=== PATIENT | male | born 1965 | race Hispanic/Latino ===

== ENCOUNTER 2018-06-30 12:33 | Outpatient (CLI) | payer BC ==
--- NOTE | 2018-06-30 14:39 | RAD ---
CHEST TWO VIEWS: HISTORY: Preoperative radiograph. COMPARISON: 06/11/2015 FINDINGS: Two views of the chest show normal sized cardiomediastinal silhouette. There is no evidence of consol idation, mass, or pleural effusion. The bones are unremarkable. IMPRESSION: No evidence of acute cardiopulmonary disease. POS: [facility]
[2018-06-30 15:22] LABS: Bilirubin Negative (Negative); Blood, Urine Negative (Negative); Clarity CLEAR (Clear); Glucose, Urine (Dipstick) Negative (Negative); Leukocyte Negative (Negative); Nitrite Negative (Negative); Protein, Urine (Dipstick) Negative (Neg-Trace); Specific Gravity, Urine 1.025 (1.002-1.036); pH, Urine 6.5 (5.0-9.0)
[2018-06-30 15:33] LABS: Bacteria/HPF None Seen HPF (None Seen); Hyaline Casts/LPF 0-3 HYALINE CAST LPF (0-3 Hyaline); Squamous Epithelial None Seen HPF (0-3); WBC/HPF 0-3 HPF (0-3)
--- NOTE | 2018-06-30 15:48 | EKG ---
Test Reason : Blood Pressure : / mmHG Vent. Rate : 059 BPM Atrial Rate : 059 BPM P-R Int : 158 ms QRS Dur : 130 ms QT Int : 428 ms P-R-T Axes : 024 261 -11 degrees QTc Int : 423 ms Sinus bradycardia Right bundle branch block Inferior infarct (cited on or before 27-MAR-2014) Abnormal ECG Confirmed by ZARA SWARTZ ([id number]) on 06/30/2018 3:47:26 PM Referred By: LANDY Confirmed By:ZARA SWARTZ
== END 2018-06-30 12:34 | disposition home or self-care (01) ==
LOC: LABBT 12:33
PROVIDERS: ATTEND Orthopaedic Surgery
DX: Z01.818 Encounter for other preprocedural examination (principal)
CPT/HCPCS: 71046; 81001; 87081; 93005; 93010

== ENCOUNTER 2018-06-30 13:00 | Inpatient (IN) | payer BC ==
[2018-07-12] MEDS ORDERED: CEFAZOLIN 2 GM/50 ML BAG ONE (07:33)
[2018-07-12] MEDS ORDERED: Fentanyl 100 MCG/2 ML VIAL ONE ×3 (07:57→11:22)
[2018-07-12] MEDS ORDERED: Midazolam HCl 2 mg/2 ml Vial ONE (07:57)
[2018-07-12] MEDS ORDERED: Zolpidem Tartrate 5 MG TAB PO PRN ×2 (08:27→08:54)
[2018-07-12] MEDS ORDERED: Promethazine HCl 25 MG/ML VIAL IM PRN ×3 (08:27→10:00)
[2018-07-12] MEDS ORDERED: HYDROcodone/Acetaminophen 10/325 mg Tablet PO PRN ×2 (08:27)
[2018-07-12] MEDS ORDERED: traMADol HCl 50 MG TAB PO PRN ×2 (08:27)
[2018-07-12] MEDS ORDERED: Ondansetron PF 4 MG/2 ML Vial IVP PRN ×2 (08:27→08:54)
[2018-07-12] MEDS ORDERED: Ropivacaine HCl/PF 250 ML in Premix Bag 1 BAG NERVE BLCK SCH (08:27)
[2018-07-12] MEDS ORDERED: Fentanyl 100 MCG/2 ML VIAL IV PRN (08:28)
[2018-07-12] MEDS ORDERED: diphenhydrAMINE 25 MG CAP PO PRN (08:54)
[2018-07-12] MEDS ORDERED: Acetaminophen 325 MG TAB PO PRN (08:54)
[2018-07-12] MEDS ORDERED: Nitroglycerin 4.9 GM Bottle SL PRN (08:55)
[2018-07-12] MEDS ORDERED: Ondansetron HCl/PF 4 MG/2 ML Vial IVP PRN (10:00)
[2018-07-12] MEDS ORDERED: Promethazine HCl 25 MG/ML VIAL SLOW IVP PRN (10:00)
--- NOTE | 2018-07-12 10:55 | OP ---
DATE OF PROCEDURE: 07/12/2018 TITLE OF PROCEDURE: Right total knee arthroplasty using Folcroft Triathlon 5 femur, 6 tibia, 9 mm CSX 3 polyethylene and A32 patella. SURGEON: Carlos Patterson M.D. PIPE JEEPER: Rolo Bucio PA-C. BLOOD LOSS: Minimal. SPECIMEN: None. DRAINS: None. COMPLICATIONS: None. TOURNIQUET TIME: 54 minutes. PROCEDURE IN DETAIL: After informed consent was obtained in the preoperative holding area. The dorian ent was taken to the operative suite where general anesthesia was induced. Once adequate level of ge neral anesthesia was obtained, the patient was positioned and a well-padded tourniquet was placed becky und the right proximal thigh. The right lower extremity was then prepped and draped in the usual sridevi rile fashion. Prior to exsanguination, a time out was called and all members of the surgical team ag magdy upon site, surgeon, and patient. The extremity was then exsanguinated and the tourniquet was ra ised. A midline longitudinal incision was then made directly over the patella extending two fingerbr eadths above the superior pole of the patella and two fingerbreadths inferior to the inferior patella r pole of the patella. Deeper subcutaneous layers were dissected sharply and local bleeding was cont rolled with Bovie electrocautery. A quad tendon longitudinal split was then made sharply and a media n parapatellar arthrotomy was carried out both sharp and with Bovie electrocautery, carried down to o ne fingerbreadth medial to the tibial tubercle. The knee was then placed into flexion and the patell a was everted nicely, and a copious fat pad ectomy was performed allowing for greater exposure of the tibia. The computer-assisted distal femoral fiducial was then placed and pinned firmly, and the dis anthony femoral cutting guide was pinned firmly into place. The oscillating saw was then used to remove the appropriate amount of bone. The 4-in-1 cutting block was then placed on the distal femur and the oscillating saw was used to remove the appropriate amount of bone off of the anterior, posterior, an d chamfer cuts. After completion of bone cuts, the anterior cruciate ligament was resected sharply a nd the posterior cruciate ligament retractor was placed and the tibia was subluxed for better exposur e. Partial meniscectomies were carried out, and the tibial computer-assisted fiducial was pinned, an d the cutting guide was placed. Oscillating saw was then used to remove the bone with Hohmann retrac tors used to take care and protect the collateral ligaments. After the tibial resection was performe d, a laminar heavy equipment engine mechanic was placed in between the freshened bone cuts. The knee placed at 90 degrees a nd further bilateral meniscectomies were carried out, and the curved osteotome and curettage was used to remove any excess bone spurs in the posterior compartment. The trial femoral component, tibial b aseplate were placed with the appropriate polyethylene trial insert with an appropriate polyethylene spacer and patellar button. The knee was taken through full range of motion with flexion and extensi on from 0-90 degrees and patellar broach squarely in the trochlea without any squinting or subluxatio n noted. The knee was also stable to varus and valgus stressing at 0, 15, 45, and 90 degrees of flex ion. The drawer was negative. All trial components were then removed and the keel punch was used to provide the appropriate defect in the tibia with a mallet. The freshened bone cuts were copiously ir rigated with pulsatile lavage of about 1-1/2 liters to remove all excess debris. The freshened bone cuts were then dried and with suction and lap sponge. The knee was placed in flexion and retractors were placed to provide access to all bone cuts. Tobramycin impregnated methyl methacrylate cement wa s then placed on the freshened bone cuts and implants which were malleted firmly into place. Curetta ge and [place] elevators were used to remove any excess bone cement. The knee was placed into full ext ension and the patellar button was placed under compression, and the cement was allowed to cure. Onc e completed, the components were again taken through full range of motion and copious irrigation of t he knee was carried out with another liter of normal saline. All components were inspected fully wit h full range of motion and varus and valgus stressing. There was no laxity noted and full extension w as observed clinically. Primary closure was accomplished with #2 interrupted Vicryl stitch of the ar throtomy defect. This was oversewn with a #2 running Quill barbed stitch. The gravitational platele t system was then injected into the arthrotomy prior to closure. The subcutaneous layer was then bobby sed with a running 0 barbed Monocryl stitch and skin closure accomplished with a running subcuticular 3-0 Monocryl barbed Quill stitch and augmented with cement on the skin. Tourniquet was lowered. Go od spontaneous return of distal pulses was noted clinically and a sterile dressing was applied to the incision. The procedure was terminated without any complications. The patient was awakened in the operative suite and the tourniquet was removed, and the patient was taken to the recovery room in sta ble condition.
[2018-07-12] MEDS ORDERED: Promethazine HCl 25 MG/ML VIAL ONE (11:22)
--- NOTE | 2018-07-12 12:01 | RAD ---
RIGHT KNEE 2 VIEWS: HISTORY: Total knee arthroplasty, postop. FINDINGS/IMPRESSION: There are recent postop changes of total knee arthroplasty in good position and alignment. Soft tiss ue air is present. POS: [facility]
[2018-07-12] MEDS: Ferrous Gluconate 324 MG TAB PO SCH ×2 (12:31→20:44)
[2018-07-12] MEDS: Aspirin 81 mg Enteric Coated Tablet PO SCH ×2 (12:31→20:44)
[2018-07-12] MEDS: Atorvastatin Calcium 40 MG TAB PO SCH (12:31)
[2018-07-12] MEDS: Dextrose 5 %-0.45 % NaCl 1,000 ML IV SCH ×2 (12:31→17:53)
[2018-07-12] MEDS: Carvedilol 3.125 MG TAB PO SCH ×2 (12:31→20:43)
[2018-07-12] MEDS: Multivitamin W/ Minerals 1 TAB PO SCH (12:32)
[2018-07-12] MEDS: Senokot S 8.6-50 MG TAB PO SCH ×2 (12:32→20:44)
[2018-07-12] MEDS: Losartan 25 MG TAB PO SCH (12:32)
[2018-07-12] MEDS: Ketorolac Tromethamine 30 MG/ML VIAL IVP SCH ×3 (12:33→23:35)
[2018-07-12 12:34] VITALS: BMI 38.3
--- NOTE | 2018-07-12 14:13 | CON ---
DATE OF CONSULTATION: 07/12/2018 HISTORY OF PRESENT ILLNESS: This is a 53-year-old Latin-Irish male, who was admitted for a total right knee replacement by Dr. Patterson. The patient underwent the surgery this morning and has done we ll. He is now beginning his postoperative care. PAST MEDICAL HISTORY: Coronary artery disease, status post NV in 03/2014, followed by Dr. Carroll; ar thritis; sleep apnea; hypertension; obesity. PAST SURGICAL HISTORY: Past surgeries include Lap-Band in 2007, knee arthroscopy at 20 years of age. Cardiac catheterization with stent placement x2 in 2006 and x2 in 2013. Ankle surgery, left, 2010. Removal of Lap-Band and port with sleeve gastrectomy by Dr. Frias, and he has had a left total knee replacement in 03/2016. FAMILY HISTORY: Positive for ovarian cancer and lymphoma. SOCIAL HISTORY: He is a nonsmoker, he has a prior history, he quit in 1999. He drinks occasional al cohol. 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 He is with 4 kids and 6 g randkids. MEDICATIONS: Include Lipitor 40 every day, losartan 100 mg daily, nitroglycerin p.r.n., aspirin 325 daily, Lasix 20 mg daily, Plavix 75 daily. ALLERGIES: None. REVIEW OF SYSTEMS: As above. PHYSICAL EXAMINATION: VITAL SIGNS: Temperature 97.8, pulse 62, respirations 16, pulse ox 97, blood pressure 141/82. GENERAL: In no acute distress. HEENT: Clear. HEART: Regular rate and rhythm. LUNGS: Clear. ABDOMEN: Soft and nontender. EXTREMITIES: With no edema. ASSESSMENT: 1. Postoperative day #0, status post total right knee replacement this morning by Dr. Patterson. 2. Coronary artery disease. 3. Hypertension. 4. Hyperlipidemia. 5. Sleep apnea. PLAN: 1. Routine postoperative care. 2. Resume home medications. 3. We will continue to follow.
[2018-07-12] MEDS: CEFAZOLIN 2 GM/50 ML BAG IVPB SCH ×2 (14:36→23:35)
[2018-07-12] MEDS ORDERED: Ropivacaine 0.5% HCl/PF (150 MG/30 ML VIAL) ONE (15:29)
[2018-07-12] MEDS ORDERED: Bupivacaine 0.25% HCL 30 ML VIAL ONE (15:29)
[2018-07-12] MEDS: HYDROcodone/Acetaminophen 10/325 mg Tablet PO PRN ×2 (16:12→20:44)
[2018-07-12] MEDS ORDERED: Ketorolac Tromethamine 30 MG/ML VIAL ONE (16:28)
[2018-07-12] MEDS ORDERED: PROPOFOL 200 MG/20 ML VIAL ONE (16:28)
[2018-07-12] MEDS ORDERED: Ondansetron PF 4 MG/2 ML Vial ONE (16:28)
[2018-07-12] MEDS ORDERED: Lidocaine 1% PF 5 ML VIAL ONE (16:28)
[2018-07-13] MEDS: HYDROcodone/Acetaminophen 10/325 mg Tablet PO PRN ×5 (02:01→20:18)
[2018-07-13 05:18] LABS: Hemoglobin 12.3 g/dL (14.0-18.0); Mean Corpuscular HGB CONC 33.2 g/dL (32.0-36.0); Mean Corpuscular Hemoglobin 31.8 pg (27.0-31.0); Mean Corpuscular Volume 95.9 fL (78.0-98.0); Mean Platelet Volume 8.3 fL (7.4-10.4); Platelet Count 178 thou/uL (130-400); RBC Distribution Width 11.5 % (11.5-14.5); Red Blood Cell (RBC) Count 3.87 mill/uL (4.70-6.10); White Blood Cell (WBC) Count 11.3 thou/uL (4.8-10.8)
[2018-07-13] MEDS: Ketorolac Tromethamine 30 MG/ML VIAL IVP SCH ×3 (05:42→17:39)
[2018-07-13] MEDS: Dextrose 5 %-0.45 % NaCl 1,000 ML IV SCH (05:43)
[2018-07-13] MEDS: Aspirin 81 mg Enteric Coated Tablet PO SCH ×2 (08:42→20:18)
[2018-07-13] MEDS: Carvedilol 3.125 MG TAB PO SCH ×2 (08:42→20:18)
[2018-07-13] MEDS: Losartan 25 MG TAB PO SCH (08:42)
[2018-07-13] MEDS: Multivitamin W/ Minerals 1 TAB PO SCH (08:43)
[2018-07-13] MEDS: Atorvastatin Calcium 40 MG TAB PO SCH (08:43)
[2018-07-13] MEDS: Ferrous Gluconate 324 MG TAB PO SCH ×2 (08:43→20:18)
[2018-07-13] MEDS: Senokot S 8.6-50 MG TAB PO SCH ×2 (08:43→20:18)
[2018-07-13] MEDS: traMADol HCl 50 MG TAB PO PRN (08:46)
--- NOTE | 2018-07-13 09:20 | PRG ---
DATE OF SERVICE: 07/13/2018 SUBJECTIVE: The patient is doing well this morning. He is postop day #1. He did ambulate yesterday . If all goes well today, he hopes to go home today. OBJECTIVE: VITAL SIGNS: Temperature 98.9, pulse 81, respirations 18, pulse ox 92, blood pressure 112/68. HEART: Regular rate and rhythm. LUNGS: Clear. ABDOMEN: Soft. LABORATORY DATA: H and H 12 and 37. ASSESSMENT: 1. Postoperative day #1, status post right total knee replacement. 2. Hypertension. 3. Coronary artery disease. 4. Hyperlipidemia. 5. Sleep apnea. PLAN: 1. Routine postoperative care. Routine PT today. 2. Considering going home today or tomorrow. 3. We will continue to follow.
[2018-07-14] MEDS: HYDROcodone/Acetaminophen 10/325 mg Tablet PO PRN ×3 (00:24→10:48)
[2018-07-14] MEDS: Ketorolac Tromethamine 30 MG/ML VIAL IVP SCH ×2 (00:24→05:41)
[2018-07-14 05:38] LABS: Hemoglobin 10.9 g/dL (14.0-18.0); Mean Corpuscular HGB CONC 33.5 g/dL (32.0-36.0); Mean Corpuscular Hemoglobin 32.3 pg (27.0-31.0); Mean Corpuscular Volume 96.5 fL (78.0-98.0); Mean Platelet Volume 8.4 fL (7.4-10.4); Platelet Count 155 thou/uL (130-400); RBC Distribution Width 11.7 % (11.5-14.5); Red Blood Cell (RBC) Count 3.37 mill/uL (4.70-6.10); White Blood Cell (WBC) Count 10.8 thou/uL (4.8-10.8)
--- NOTE | 2018-07-14 08:17 | PRG ---
DATE OF SERVICE: 07/14/2018 SUBJECTIVE: The patient is doing well. No complaints. Tolerated physical therapy well yesterday. OBJECTIVE: VITAL SIGNS: Temperature 98.7, pulse 70, respirations 18, pulse ox 96, blood pressure 121/79. HEART AND LUNGS: Clear. ABDOMEN: Soft. EXTREMITIES: No edema. ASSESSMENT: 1. Postop day #2 status post total right knee replacement. 2. Hypertension. 3. Coronary artery disease. 4. Hyperlipidemia. 5. Sleep apnea. PLAN: Doing well. Most likely discharge home today. Follow up in 2 weeks in my office. Continue a ll medications.
[2018-07-14] MEDS: traMADol HCl 50 MG TAB PO PRN (08:36)
[2018-07-14] MEDS: Ferrous Gluconate 324 MG TAB PO SCH (08:38)
[2018-07-14] MEDS: Losartan 25 MG TAB PO SCH (08:38)
[2018-07-14] MEDS: Senokot S 8.6-50 MG TAB PO SCH (08:38)
[2018-07-14] MEDS: Aspirin 81 mg Enteric Coated Tablet PO SCH (08:39)
[2018-07-14] MEDS: Atorvastatin Calcium 40 MG TAB PO SCH (08:39)
[2018-07-14] MEDS: Multivitamin W/ Minerals 1 TAB PO SCH (08:39)
[2018-07-14] MEDS: Carvedilol 3.125 MG TAB PO SCH (08:39)
[2018-07-14 11:47] VITALS: BP 136/64; TEMP 98.5
--- NOTE | 2018-07-15 13:07 | DIS ---
DATE OF ADMISSION: 07/12/2018 DATE OF DISCHARGE: 07/14/2018 PREOPERATIVE DIAGNOSIS: Right knee osteoarthritis/degenerative joint disease. POSTOPERATIVE DIAGNOSIS: Right knee osteoarthritis/degenerative joint disease. PROCEDURE: The patient underwent a right total knee replacement. HOSPITAL COURSE: Hospital stay was unremarkable. He worked with physical therapy, substance abuse therapist apy, and our Hospitalist Service and had no postop complications. By postop day 2, he was ready to b e discharged home. DISCHARGE CONDITION: Good/stable. DISPOSITION: Home with family. FOLLOWUP: Followup would be in 2-4 weeks, sooner if there are problems or concerns. DISCHARGE MEDICATIONS: Given with usage instructions. Rolo Bucio PA-C for Carlos Patterson MD.
== END 2018-07-14 12:47 | disposition home or self-care (01) | DRG 470 ==
LOC: SURG A 07-12 06:22 → SURG B 07-12 12:19
PROVIDERS: ADMIT Orthopaedic Surgery; ATTEND Orthopaedic Surgery
PROC: 0SRC0J9 Replacement of Right Knee Joint with Synthetic Substitute, Cemented, Open Approach (ICD-10-PCS; principal; 2018-07-12)
DX: M17.11 Unilateral primary osteoarthritis, right knee (principal); Z68.41 Body mass index [BMI] 40.0-44.9, adult; I25.10 Atherosclerotic heart disease of native coronary artery without angina pectoris; I25.2 Old myocardial infarction; E66.9 Obesity, unspecified; Z98.84 Bariatric surgery status; I10 Essential (primary) hypertension; E78.5 Hyperlipidemia, unspecified; Z79.899 Other long term (current) drug therapy; Z79.82 Long term (current) use of aspirin; G47.30 Sleep apnea, unspecified; M54.9 Dorsalgia, unspecified; Z95.5 Presence of coronary angioplasty implant and graft; Z96.652 Presence of left artificial knee joint; Z87.891 Personal history of nicotine dependence
CPT/HCPCS: 36415; 85027; 90471; 90686; C1713; C1776; G0008; G8978-GP-CK; G8979-GP-CI; J1885; J2001; J2250; J2405; J2550; J2704; J2795; J3010; J3370; J7050; S0020

== ENCOUNTER 2018-07-07 08:09 | Outpatient (CLI) | payer BC ==
[2018-07-07 09:16] LABS: PTT 29.2 SEC (22.9-36.1)
[2018-07-07 09:19] LABS: #Basophils 0.1 thou/uL (0.0-0.2); #Eosinphils 0.2 thou/uL (0.0-0.7); #Lymphocytes 1.7 thou/uL (1.20-3.40); #Monocytes 0.8 thou/uL (0.11-0.59); #Neutrophils 5.7 thou/uL (1.40-6.50); %Eosinophils 2.1 % (0.0-10.0); %Lymphocytes 19.9 % (21.0-51.0); Hemoglobin 15.5 g/dL (14.0-18.0); Mean Corpuscular Hemoglobin 31.3 pg (27.0-31.0); Mean Corpuscular Volume 94.8 fL (78.0-98.0); Mean Platelet Volume 8.7 fL (7.4-10.4); Platelet Count 202 thou/uL (130-400); Prothrombin Time 13.2 SEC (12.0-14.7); RBC Distribution Width 11.5 % (11.5-14.5); Red Blood Cell (RBC) Count 4.95 mill/uL (4.70-6.10); White Blood Cell (WBC) Count 8.4 thou/uL (4.8-10.8)
[2018-07-07 09:29] LABS: Anion Gap 11 mmol/L (10-20); BUN (Urea Nitrogen) 15 mg/dL (8.4-25.7); Calc. Creatinine Clearance 0 mL/min (70-130); Calcium 9.4 mg/dL (7.8-10.44); Carbon Dioxide 27 mmol/L (22-29); Chloride 105 mmol/L (98-107); Estimated GFR-MDRD Greater than 90; Glucose 103 mg/dL (70-105); Potassium 4.3 mmol/L (3.5-5.1); Sodium 139 mmol/L (136-145)
== END 2018-07-07 08:10 | disposition home or self-care (01) ==
LOC: LABBT 08:09
PROVIDERS: ATTEND Orthopaedic Surgery
DX: Z01.812 Encounter for preprocedural laboratory examination (principal); M17.11 Unilateral primary osteoarthritis, right knee
CPT/HCPCS: 80048; 85025; 85610; 85730; 86850; 86900; 86901

== ENCOUNTER 2018-11-22 08:26 | Outpatient (CLI) | payer BC ==
--- NOTE | 2018-11-22 09:34 | RAD ---
3 VIEWS LEFT HAND: Date: 11/22/18 HISTORY: Third carpal stiffness and popping. Arthralgias. FINDINGS: Three views of the left hand show no evidence of acute fracture or dislocation. Mild diffuse soft tis aidan swelling is seen. No significant degenerative changes are seen. IMPRESSION: No evidence of acute osseous abnormality. POS: [facility]
== END 2018-11-22 08:27 | disposition home or self-care (01) ==
LOC: BICRAD 08:26
PROVIDERS: ATTEND Family Medicine
DX: M25.542 Pain in joints of left hand (principal); Z00.00 Encounter for general adult medical examination without abnormal findings; M25.50 Pain in unspecified joint
CPT/HCPCS: 36415; 80053; 80061; 81001; 83520; 84443; 84550; 85025; 86038; 86200; 86225; G0103

== ENCOUNTER 2019-05-11 09:47 | Outpatient (CLI) | payer BC ==
--- NOTE | 2019-05-11 10:08 | RAD ---
XR Lumbar Spine 2 Or 3 View HISTORY: Low back pain going into both legs. COMPARISON: None. FINDINGS: The vertebral bodies are normal in height. Degenerative osteophytes are seen along the cour se of this fine with minimal disc narrowing at L4-5 and very minimal spondylolisthesis at this level not definitely changing between the flexion and extension views. There are moderate degenerativ e facet changes present. IMPRESSION: Arthritic changes of the spine.
== END 2019-05-11 09:48 | disposition home or self-care (01) ==
LOC: TBSIIMAG 09:47
PROVIDERS: ATTEND Neurological Surgery
DX: M48.062 Spinal stenosis, lumbar region with neurogenic claudication (principal); M46.96 Unspecified inflammatory spondylopathy, lumbar region
CPT/HCPCS: 72100

== ENCOUNTER 2019-07-11 15:05 | Outpatient (CLI) | payer BC ==
[2019-07-11 16:14] LABS: #Basophils 0.1 thou/uL (0.0-0.2); #Eosinphils 0.3 thou/uL (0.0-0.7); #Lymphocytes 2.1 thou/uL (1.20-3.40); #Monocytes 0.9 thou/uL (0.11-0.59); #Neutrophils 5.4 thou/uL (1.40-6.50); %Basophils 0.7 % (0.0-1.0); %Lymphocytes 23.8 % (21.0-51.0); %Monocytes 10.3 % (0.0-10.0); %Neutrophils 62.2 % (42.0-75.0); Hemoglobin 15.2 g/dL (14.0-18.0); INR-International Normal Ratio 1.1; Mean Corpuscular HGB CONC 34.5 g/dL (32.0-36.0); Mean Corpuscular Hemoglobin 32.9 pg (27.0-31.0); Mean Corpuscular Volume 95.3 fL (78.0-98.0); Mean Platelet Volume 7.9 fL (7.4-10.4); PTT 28.2 SEC (22.9-36.1); Platelet Count 169 thou/uL (130-400); Prothrombin Time 13.7 SEC (12.0-14.7); RBC Distribution Width 12.1 % (11.5-14.5); Red Blood Cell (RBC) Count 4.62 mill/uL (4.70-6.10); White Blood Cell (WBC) Count 8.7 thou/uL (4.8-10.8)
[2019-07-11 16:29] LABS: ALT (SGPT) 32 U/L (8-55); AST (SGOT) 23 U/L (5-34); Alkaline Phosphatase 79 U/L (40-110); Anion Gap 12 mmol/L (10-20); BUN (Urea Nitrogen) 14 mg/dL (8.4-25.7); Bilirubin, Total 0.5 mg/dL (0.2-1.2); Calc. Creatinine Clearance 0 mL/min (70-130); Carbon Dioxide 24 mmol/L (22-29); Chloride 105 mmol/L (98-107); Estimated GFR-MDRD Greater than 90; Globulin 2.7 g/dL (2.4-3.5); Glucose 93 mg/dL (70-105); Potassium 3.9 mmol/L (3.5-5.1); Protein, Total 6.7 g/dL (6.0-8.3); Sodium 137 mmol/L (136-145)
== END 2019-07-11 15:06 | disposition home or self-care (01) ==
LOC: LABBT 15:05
PROVIDERS: ATTEND Internal Medicine Cardiovascular Disease
DX: Z01.812 Encounter for preprocedural laboratory examination (principal); I25.10 Atherosclerotic heart disease of native coronary artery without angina pectoris
CPT/HCPCS: 80053; 85025; 85610; 85730

== ENCOUNTER 2019-07-14 06:12 | Observation (INO) | payer BC ==
[2019-07-11 15:34] VITALS: BMI 43.3
[2019-07-14] MEDS ORDERED: Diazepam 5 MG TAB ONE (06:18)
[2019-07-14] MEDS ORDERED: Heparin (Artline) 1,000 ML ONE (06:37)
[2019-07-14] MEDS ORDERED: Lidocaine 1% (PF) 30 ML VIAL ONE (06:37)
[2019-07-14] MEDS ORDERED: Midazolam HCl 2 mg/2 ml Vial ONE (08:09)
[2019-07-14] MEDS ORDERED: Fentanyl 100 MCG/2 ML VIAL ONE ×5 (08:09→15:00)
[2019-07-14] MEDS ORDERED: Nitroglycerin 100MG/250ML BOT 250 ML ONE (08:42)
[2019-07-14] MEDS ORDERED: Heparin 10,000 UNITS/1 ML VIAL ONE ×2 (08:57→10:34)
[2019-07-14] MEDS ORDERED: Heparin (Artline) 500 ML ONE ×2 (08:58→09:16)
[2019-07-14] MEDS ORDERED: Clopidogrel Bisulfate 300 MG TAB ONE (08:58)
[2019-07-14] MEDS ORDERED: Aspirin Chewable 81 MG TAB ONE (09:16)
[2019-07-14] MEDS ORDERED: Iopamidol 370 76% 100 ML VIAL ONE (10:22)
[2019-07-14] MEDS ORDERED: Iopamidol 370 76% 50 ML VIAL FS ONE (10:22)
[2019-07-14] MEDS ORDERED: Nitroglycerin 4.9 GM Bottle SL PRN (16:58)
[2019-07-14] MEDS ORDERED: traMADol HCl 50 MG TAB PO PRN (16:59)
[2019-07-14] MEDS ORDERED: Acetaminophen/Codeine 30-300mg Tablet PO PRN (17:00)
[2019-07-14] MEDS ORDERED: VASCEPA PO SCH (17:00)
[2019-07-14] MEDS: Sodium Chloride 0.9% 1,000 ML IV SCH (19:46)
[2019-07-14] MEDS: traMADol HCl 50 MG TAB PO SCH (20:36)
[2019-07-14] MEDS: Carvedilol 6.25 MG TAB PO SCH (20:36)
[2019-07-14] MEDS ORDERED: Gabapentin 300 MG CAP PO SCH (21:00)
[2019-07-14] MEDS ORDERED: Rosuvastatin 20 MG TAB PO SCH (21:00)
[2019-07-15] MEDS: Sodium Chloride 0.9% 1,000 ML IV SCH (02:37)
[2019-07-15 05:16] LABS: #Eosinphils 0.1 thou/uL (0.0-0.7); #Lymphocytes 1.2 thou/uL (1.20-3.40); #Monocytes 0.7 thou/uL (0.11-0.59); #Neutrophils 5.4 thou/uL (1.40-6.50); %Basophils 0.2 % (0.0-1.0); %Eosinophils 1.3 % (0.0-10.0); %Lymphocytes 15.9 % (21.0-51.0); %Monocytes 9.3 % (0.0-10.0); %Neutrophils 73.3 % (42.0-75.0); Hemoglobin 12.1 g/dL (14.0-18.0); Mean Corpuscular HGB CONC 34.8 g/dL (32.0-36.0); Mean Corpuscular Hemoglobin 33.4 pg (27.0-31.0); Mean Platelet Volume 8.1 fL (7.4-10.4); Platelet Count 169 thou/uL (130-400); RBC Distribution Width 12.1 % (11.5-14.5); Red Blood Cell (RBC) Count 3.63 mill/uL (4.70-6.10); White Blood Cell (WBC) Count 7.4 thou/uL (4.8-10.8)
[2019-07-15 05:39] LABS: ALT (SGPT) 23 U/L (8-55); AST (SGOT) 16 U/L (5-34); Albumin 3.5 g/dL (3.5-5.0); Alkaline Phosphatase 62 U/L (40-110); Anion Gap 9 mmol/L (10-20); BUN (Urea Nitrogen) 14 mg/dL (8.4-25.7); Bilirubin, Total 0.7 mg/dL (0.2-1.2); Calc. Creatinine Clearance 211 mL/min (70-130); Calcium 8.3 mg/dL (7.8-10.44); Carbon Dioxide 27 mmol/L (22-29); Chloride 105 mmol/L (98-107); Estimated GFR-MDRD Greater than 90; Globulin 2.1 g/dL (2.4-3.5); Glucose 103 mg/dL (70-105); Potassium 4.1 mmol/L (3.5-5.1); Protein, Total 5.6 g/dL (6.0-8.3); Sodium 137 mmol/L (136-145)
[2019-07-15 08:11] VITALS: TEMP 98.3
[2019-07-15] MEDS: traMADol HCl 50 MG TAB PO SCH (08:35)
[2019-07-15] MEDS: Carvedilol 6.25 MG TAB PO SCH (08:35)
[2019-07-15] MEDS ORDERED: Gabapentin 300 MG CAP PO SCH (09:00)
[2019-07-15] MEDS ORDERED: Losartan 25 MG TAB PO SCH (09:00)
[2019-07-15] MEDS ORDERED: Clopidogrel Bisulfate 75 MG TAB PO SCH (09:00)
[2019-07-15] MEDS ORDERED: Aspirin 325 MG TAB PO SCH (09:00)
--- NOTE | 2019-07-15 09:35 | ULT ---
Ultrasound Doppler duplex right groin: DATE: 07/15/2019 HISTORY: 54-year-old male with right groin hematoma after percutaneous coronary intervention. TECHNIQUE: Grayscale, color-flow, and spectral analysis, of right groin. FINDINGS: There is edema. Hypoechoic stripes in the soft tissues may represent mild infiltrating hematoma. No p seudoaneurysm is identified. Pulsatile flow demonstrated in what is labeled as the common femoral artery. Common femoral vein not clearly demonstrated. Because of body habitus, these vessels are poor ly visualized. IMPRESSION: 1. No pseudoaneurysm. 2. Soft tissue edema
[2019-07-15 12:31] VITALS: BP 111/57
[2019-07-15] MEDS ORDERED: Famotidine 20 MG TAB PO SCH (21:00)
[2019-07-16] MEDS ORDERED: Ezetimibe 10 MG TAB PO SCH (09:00)
--- NOTE | 2019-07-16 16:23 | EKG ---
Test Reason : S/P STENT Blood Pressure : / mmHG Vent. Rate : 056 BPM Atrial Rate : 056 BPM P-R Int : 164 ms QRS Dur : 120 ms QT Int : 434 ms P-R-T Axes : 016 -38 -05 degrees QTc Int : 418 ms Sinus bradycardia Left axis deviation Inferior infarct (cited on or before 27-MAR-2014) Abnormal ECG When compared with ECG of 30-JUN-2018 13:03, Right bundle branch block is no longer Present Confirmed by DR. Ariel GARCIA ([id number]) on 07/16/2019 4:23:15 PM Referred By: RADHA Confirmed By:DR. Ariel GARCIA
--- NOTE | 2019-07-16 16:27 | EKG ---
Test Reason : ROUTINE Blood Pressure : / mmHG Vent. Rate : 064 BPM Atrial Rate : 064 BPM P-R Int : 124 ms QRS Dur : 108 ms QT Int : 410 ms P-R-T Axes : 006 -36 008 degrees QTc Int : 422 ms Normal sinus rhythm Indeterminate axis Low voltage QRS Incomplete right bundle branch block Borderline ECG No previous ECGs available Confirmed by DR. Ariel GARCIA ([id number]) on 07/16/2019 4:27:32 PM Referred By: ARMAND GARCIA Confirmed By:DR. Ariel GARCIA
--- NOTE | 2019-07-16 21:52 | DIS ---
DATE OF ADMISSION: 07/14/2019 DATE OF DISCHARGE: 07/15/2019 Mr. Montoya is doing well today. The patient had successful percutaneous coronary intervention of the right coronary and LAD yesterday, but due to his anatomy, there was a lot of difficulty getting hemostasis after manual compression. His femoral artery is very deep and bifurcates high. The patient ultimately did well. He is feeling well today. We did an ultrasound of his groin today, it showed no pseudoaneurysm. Medications will be; 1. Aspirin. 2. Plavix. 3. Carvedilol. 4. Losartan. 5. Crestor. 6. Add Zetia. 7. Pepcid 20 mg twice a day for 30 days only. See us in about 3 to 4 weeks. In summary, the only medicine change was I added Zetia 10 mg a day and Pepcid for one month only as his angina feels like indigestion, we wished to avoid any true indigestion. The patient did have two stents placed. In the LAD, there was an 80% lesion after a relatively small diagonal branch. He was treated with a 2.75 x 16 drug-eluting stent and he was post dilated with a 3 mm balloon to high pressure. The right coronary artery had a previous stent, had a 95% in-stent restenosis. The more proximal stent had no significant restenosis. The area was dilated and then, stented with a 2.5 x 20 mm drug-eluting stent and then, postdilated 2.75 mm balloon high-pressure. The patient is doing well and is released home. He is walking in the torres, feeling well. Job ID: [id number]
== END 2019-07-15 12:10 | disposition home or self-care (01) ==
LOC: CCL 06:12 → 2SW 15:27
PROVIDERS: ADMIT Internal Medicine Cardiovascular Disease; ATTEND Internal Medicine Cardiovascular Disease
PROC: 4A023N7 Measurement of Cardiac Sampling and Pressure, Left Heart, Percutaneous Approach (ICD-10-PCS; principal; 2019-07-15)
PROC: B2111ZZ Fluoroscopy of Multiple Coronary Arteries using Low Osmolar Contrast (ICD-10-PCS; 2019-07-15)
DX: I25.10 Atherosclerotic heart disease of native coronary artery without angina pectoris (principal); I10 Essential (primary) hypertension; E78.00 Pure hypercholesterolemia, unspecified; E78.2 Mixed hyperlipidemia; E66.9 Obesity, unspecified; Z68.41 Body mass index [BMI] 40.0-44.9, adult; Z79.82 Long term (current) use of aspirin; Z79.899 Other long term (current) drug therapy
CPT/HCPCS: 36415; 76936; 76942; 80053; 85025; 85347; 92929; 93005; 93010; 93458; 93798; 99152; 99153; C1769; C1874; C1887; C9601; G0378; J1644; J2001; J2250; J3010; Q9967

== ENCOUNTER 2020-01-26 10:24 | Observation (INO) | payer BC ==
[2020-01-26 11:08] LABS: #Lymphocytes 0.9 thou/uL (1.20-3.40); #Monocytes 1.1 thou/uL (0.11-0.59); #Neutrophils 10.3 thou/uL (1.40-6.50); %Eosinophils 0.1 % (0.0-10.0); %Lymphocytes 7.1 % (21.0-51.0); %Monocytes 8.9 % (0.0-10.0); %Neutrophils 83.8 % (42.0-75.0); Hemoglobin 13.6 g/dL (14.0-18.0); Mean Corpuscular HGB CONC 33.6 g/dL (32.0-36.0); Mean Corpuscular Hemoglobin 32.2 pg (27.0-31.0); Mean Corpuscular Volume 95.6 fL (78.0-98.0); Mean Platelet Volume 8.7 fL (7.4-10.4); Platelet Count 189 thou/uL (130-400); RBC Distribution Width 12.1 % (11.5-14.5); Red Blood Cell (RBC) Count 4.24 mill/uL (4.70-6.10); White Blood Cell (WBC) Count 12.3 thou/uL (4.8-10.8)
[2020-01-26 11:28] LABS: ALT (SGPT) 38 U/L (8-55); AST (SGOT) 19 U/L (5-34); Alkaline Phosphatase 74 U/L (40-110); Anion Gap 10 mmol/L (10-20); BUN (Urea Nitrogen) 20 mg/dL (8.4-25.7); Bilirubin, Total 0.5 mg/dL (0.2-1.2); Calc. Creatinine Clearance 0 mL/min (70-130); Calcium 8.6 mg/dL (7.8-10.44); Carbon Dioxide 26 mmol/L (22-29); Chloride 106 mmol/L (98-107); Estimated GFR-MDRD Greater than 90; Globulin 2.7 g/dL (2.4-3.5); Glucose 129 mg/dL (70-105); Potassium 3.9 mmol/L (3.5-5.1); Protein, Total 6.7 g/dL (6.0-8.3); Sodium 138 mmol/L (136-145)
[2020-01-26 13:48] LABS: Troponin I Less than 0.010 ng/mL (< 0.028)
--- NOTE | 2020-01-26 14:14 | RAD ---
FRONTAL RADIOGRAPH CHEST: DATE: 01/26/2020. COMPARISON: 06/30/2018. HISTORY: Chest pain. FINDINGS: There is stable prominence of the cardiac silhouette with no pneumothorax, pleural fluid, focal conso lidation, or alveolar edema. IMPRESSION: No acute findings. POS: [facility]
[2020-01-26] MEDS ORDERED: Nitroglycerin 0.4 MG TAB (25 Tab Bottle) PO PRN (15:28)
[2020-01-26] MEDS ORDERED: Calcium Carbonate 500 MG ChewTAB PO PRN (15:28)
[2020-01-26] MEDS ORDERED: Ondansetron ODT 4 MG TAB PO PRN (15:28)
[2020-01-26] MEDS ORDERED: hydrALAZINE 20 MG/ML VIAL SLOW IVP PRN (15:28)
[2020-01-26] MEDS ORDERED: Ondansetron PF 4 MG/2 ML Vial IVP PRN (15:28)
[2020-01-26] MEDS ORDERED: Acetaminophen 500 MG TAB PO PRN (15:28)
[2020-01-26 15:29] VITALS: BMI 45.6
[2020-01-26 15:31] LABS: Troponin I Less than 0.010 ng/mL (< 0.028)
[2020-01-26] MEDS ORDERED: Nitroglycerin 4.9 GM Bottle SL PRN (16:23)
--- NOTE | 2020-01-26 20:20 | HP ---
PRIMARY CARE PROVIDER: Kervin Sharma MD CHIEF COMPLAINT: Right-sided chest pain. HISTORY OF PRESENT ILLNESS: This is a 54-year-old male, who presents to [facility] Emergency Department complaining of sudden onset of sharp right anterior chest wall pain. The patient states this began while he was at work checking his emails. The patient states the pain was severe right-sided and radiated from the mid chest to the right axillary region. The patient used sublingual nitroglycerin spray x2 and the pain resolved within 20 minutes. The patient denied any associated nausea, vomiting, or diarrhea. The patient denied any left arm or jaw discomfort. The patient does admit to a significant cardiac history, undergoing seven stent placements previously, most recently six months prior to this evaluation. The patient does state that he is on dual antiplatelet therapy with aspirin and Plavix, and has been compliant with his medication regimen. No history of increased cough, congestion, fever, exposure history, recent trauma or injury. The patient denied any prominent symptoms of reflux and states he takes H2 hina daily. In the emergency room, the patient underwent general evaluation with initial cardiac biomarkers negative. EKG was performed showing chronic right bundle-branch block pattern without acute ST-T wave changes noted. The patient was referred to the Hospitalist Service for evaluation. PAST MEDICAL HISTORY: 1. Coronary artery disease, status post multiple stent placements. 2. Hypertension. 3. Hyperlipidemia. 4. Morbid obesity. 5. Obstructive sleep apnea, on nocturnal CPAP. 6. Back pain with sciatica. PAST SURGICAL HISTORY: 1. Status post lap band surgery, 2007. 2. Status post knee arthroscopy. 3. Status post cardiac catheterization with stent placement x7 total. 4. Status post left ankle surgery. 5. Status post removal of lap band and port with sleeve gastrectomy. 6. Status post left total knee arthroplasty. CURRENT MEDICATIONS: 1. Enteric-coated aspirin 325 mg p.o. daily. 2. Carvedilol 6.25 mg p.o. b.i.d. 3. Plavix 75 mg p.o. daily. 4. Gabapentin 300 mg p.o. daily and 600 mg p.o. at bedtime. 5. Vascepa 2 g p.o. b.i.d. 6. Losartan 100 mg p.o. daily. 7. Nitroglycerin 1 spray sublingually q.5 minutes p.r.n. chest pain. 8. Crestor 40 mg p.o. daily. 9. Zetia 10 mg p.o. daily. 10. Pepcid 20 mg p.o. b.i.d. FAMILY HISTORY: Positive for coronary artery disease. SOCIAL HISTORY: Resides in [place], [place]. . No current alcohol, tobacco, or illicit drug use. Works for a local [employer]. ALLERGIES: NO KNOWN DRUG ALLERGIES. REVIEW OF SYSTEMS: CONSTITUTIONAL: Negative for weight loss or gain, ability to conduct usual activities. SKIN: Negative for rash, itching. EYES: Negative for double vision, pain. ENT/MOUTH: Negative for nose bleeding, neck stiffness, pain, tenderness. CARDIOVASCULAR: Negative for palpitations, dyspnea on exertion, orthopnea. RESPIRATORY: Negative for shortness of breath, wheezing, cough, hemoptysis, fever or night sweats. GASTROINTESTINAL: Negative for poor appetite, abdominal pain, heartburn, nausea, vomiting, constipation, or diarrhea. GENITOURINARY: Negative for urgency, frequency, dysuria, nocturia. MUSCULOSKELETAL: Negative for pain, swelling. NEUROLOGIC/PSYCHIATRIC: Negative for anxiety, depression. ALLERGY/IMMUNOLOGIC: Negative for skin rash, bleeding tendency. Otherwise negative except as stated per HPI. PHYSICAL EXAMINATION: VITAL SIGNS: On admission, blood pressure 129/74, pulse 57, respiratory rate 16, temperature 98 degrees Fahrenheit, and O2 saturation 98% on room air. GENERAL APPEARANCE: This is a 54-year-old male, alert and oriented x3, pleasant, responsive, in no acute distress. HEENT: Pupils are equal, round, reactive to light and accommodation. Extraocular muscles are intact. No scleral icterus. No conjunctival injection. Nares patent. OP is clear. Teeth in fair repair. NECK: Supple. No cervical adenopathy. No thyromegaly. No carotid bruits. No JVD appreciated. Cervical spine with full active and passive range of motion. No meningeal signs noted. CHEST: Lungs are clear to auscultation bilaterally. Right anterior pectoral tenderness to palpation over the third rib and costochondral margin. CARDIOVASCULAR: S1, S2 without noted murmur, rub, or gallop. ABDOMEN: Obese, soft, nontender, and nondistended. Bowel sounds are positive in all 4 quadrants. There is no hepatosplenomegaly. No abdominal bruits. No rebound or guarding appreciated. EXTREMITIES: Warm and dry with fair turgor. No clubbing, cyanosis, or asymmetric edema appreciated. Pulses palpable distally at the dorsalis pedis, posterior tibial, and popliteal arteries bilaterally. Capillary refill less than 2 seconds. NEUROLOGIC: Cranial nerves 2 through 12 are grossly intact. No focal or lateralizing signs appreciated. PERTINENT LABORATORY AND X-RAY FINDINGS: Basic metabolic profile within normal limits. LFTs within normal limits. Troponin I negative x3. BNP 61. CBC showed a white blood cell count of 12.3, hemoglobin 14, hematocrit 41, platelet count 189 with 84% neutrophils. Portable chest x-ray dated 01/26/2020, showed no acute cardiopulmonary process. EKG dated 01/26/2020 by my interpretation shows sinus mechanism with right bundle-branch block pattern. Attenuated R-waves noted in the precordial leads. Normal axis. No acute ST-T wave changes appreciated. ASSESSMENT AND PLAN: 1. Chest pain. The patient will be observed on the telemetry unit. Consult Cardiology Service for further recommendations regarding the need for cardiac catheterization versus conservative management and observation. Resume aspirin and Plavix. Continue telemetry monitoring. Initial serial cardiac biomarkers negative. 2. Coronary artery disease. Status post cardiac stent placement x7. See #1 above. Resume home regimen with carvedilol 6.25 mg b.i.d. 3. Hyperlipidemia. Resume home lipid-lowering regimen and monitor clinically. 4. Peripheral neuropathy. Resume home gabapentin and monitor clinical response. 5. Hypertension. Continue home antihypertensive regimen and monitor clinical response. 6. Prophylaxis. SCDs while in bed. Pepcid 20 mg p.o. b.i.d. 7. Code status is full. Surrogate medical decision maker is the patient's spouse. Job ID: [id number]
[2020-01-26] MEDS ORDERED: Gabapentin 300 MG CAP PO SCH (21:00)
[2020-01-26] MEDS: Famotidine 20 MG TAB PO SCH (21:12)
[2020-01-26] MEDS: Carvedilol 6.25 MG TAB PO SCH (21:12)
[2020-01-26] MEDS ORDERED: traMADol HCl 50 MG TAB PO SCH (22:00)
--- NOTE | 2020-01-27 01:25 | CON ---
DATE OF CONSULTATION: PRIMARY CARE DOCTOR: Kervin Sharma MD PRIMARY POULTRY RAISER: Melodie Carroll MD REASON FOR CARDIOLOGY CONSULTATION: Chest pain and history of multiple stent placement. HISTORY OF PRESENT ILLNESS: Mr. Montoya is a very present 54-year-old male with a significant history of coronary artery disease with multiple stent placement, hypertension, hyperlipidemia, obesity, and sleep apnea. The patient has a multiple history of stent placement in 2013 and June,. Since then, the patient was doing relatively well. He exercises at least 3 times a week with bicycling or walking. He never had any chest pain, heaviness, tightness, shortness of breath , any other cardiac complaints during the exercise. He has been checking his blood pressure, which has been 120-130 over 60-70 with heart rate around 70s. However , around 8 o'clock this morning, he started sharp pain from lower mediastinal area to under his right breast for 20 minutes. He denied any other cardiac complaints during the episode. He had 2 nitroglycerin sprays during the episode ; however, his symptom did not improve. Due to the symptoms, the patient decided to present to the emergency department for further evaluation and treatment. Once the patient reached the emergency department, the patient's symptom subsided. At this moment, the patient denied any cardiac complaints. During the episode, the patient denied any other cardiac complaints either. The patient had a 12-lead EKG at the emergency department, it shows sinus rhythm with old inferior wall myocardial infarction with stable heart rate, which has not changed since June 2019. The patient has multiple cardiac catheterizations, first one was in 2006 with two stents in the distal RCA. Second cardiac catheterization was done in 2013 with stent in the proximal RCA with 2.25 x 15 mm stent, and a 3.0 x 15 mm stent. The patient's cardiac catheterization was done in June 2019 with proximal LAD with 2.75 x 16 mm drug eluted stent, which was dilated to 3 mm in the proximal LAD and 2.5 x 20 mm drug eluted stent in distal RCA, which was dilated to 2.75 mm and 70 % of stenosis in the ramus and 60% stenosis in the distal left circumflex. PAST MEDICAL HISTORY: 1. Coronary artery disease with multiple stent placement. 2. Obesity. 3. Hypertension. 4. Hyperlipidemia. 5. Sleep apnea with CPAP at night. PAST SURGICAL HISTORY: 1. Two stents placement in the distal RCA in 2006. 2. Two stents in proximal RCA in 2013. 3. One drug-eluting stent in the proximal LAD and drug-eluting stent x1 in the distal RCA in June 2019. 4. Bilateral total knee replacement. 5. Bariatric lap band in 2007. 6. Gastric sleeve. FAMILY HISTORY: The patient's mother has a history of heart related disease. The patient's father has medical history of diabetes. The patient's brother has a medical history of diabetes. SOCIAL HISTORY: The patient is . He has 4 children. The patient denied tobacco or illicit drug abuse. He drinks one drink a couple of times a month and holiday time. He does regular exercise 1 mile walking or 2 mile bicycling at least 3 times a week. He watch his diet and fluid intake. ALLERGIES: NO KNOWN DRUG ALLERGIES. MEDICATIONS: 1. Nitroglycerin 1 spray p.r.n. 2. Aspirin 325 mg once a day. 3. Plavix 75 mg once a day. 4. Losartan 100 mg once a day. 5. Lovastatin 40 mg once a day. 6. Carvedilol 6.25 mg twice a day. 7. Tramadol 50 mg 1 tablet twice a day. 8. Pepcid 20 mg twice a day. 9. Gabapentin 600 mg 1 tablet 3 times a day. 10. Amitriptyline 25 mg once a day at night. 11. Vascepa 1 g two capsules twice a day. 12. Multivitamin once a day. 13. Zetia 10 mg once a day. 14. He is taking Lasix 20 mg twice a day for swelling in the lower extremities. REVIEW OF SYSTEMS: A 12-point review of systems negative unless otherwise mentioned in the HPI. The patient takes Lasix 20 mg twice a day, which was prescribed once a day as needed due to the swelling in the lower extremities. He has been watching his salt intake and fluid intake. He is not wearing the compression stocking now. PHYSICAL EXAMINATION: VITAL SIGNS: Blood pressure 129/74, temperature 98.0, pulse is 57 to 60s, sinus rhythm with right bundle branch block, respiratory rate 16, O2 saturation 98% on room air. GENERAL: The patient is alert and oriented x4, not in acute distress. HEENT: Normocephalic, atraumatic. EYES: Extraocular muscle movement intact. ENT AND MOUTH: Oral and nasal mucosa moist without lesion. NECK: Supple, normal range of motion. No JVD noted. The patient has mild bruit in the left carotid area, but not on right side. RESPIRATORY: Clear to auscultation bilaterally. No wheezing or rhonchi noted. CARDIOVASCULAR: Regular rate and rhythm. Normal S1, S2. No S3 or S4. No significant murmur, heaves, or thrill noted. 2+ pulses in bilateral upper and lower extremities. He has 1-2 pitting edema around the socks area. ABDOMEN: Soft, nontender. No mass palpated. Bowel sounds are present. SKIN: Warm and dry. No lesion, rash, or erythema noted. MUSCULOSKELETAL: The patient was able to move all extremities without difficulty. The patient denied claudication. NEUROLOGIC: The patient is alert and oriented x4. Nonfocal. PSYCHIATRIC: The patient's mood is appropriate. LABORATORY DATA: WBC 12.3, hemoglobin 13.6, hematocrit 40.6, platelet 189. Sodium 138, potassium 3.9, BUN 20, creatinine 0.79, AST 19, ALT 38, calcium 8.6. Troponin is negative x3. BNP 60.9. The patient's total cholesterol is 120, triglycerides 77, HDL 50, LDL 55. TSH 0.4074, vitamin D 30.3. Hemoglobin A1c is 5.3 in 2015. DIAGNOSTIC DATA: The patient's chest x-ray shows no acute cardiopulmonary process. ASSESSMENT AND PLAN: 1. Atypical chest pain. The way the patient describes his symptom seems like it is musculoskeletal etiology. The patient can exercise 3 times a week. The patient does not have any cardiac complaints at this moment. The patient's EKG has not changed compared to previous EKGs. The patient's vital signs are stable at this moment. If the patient is stable, the patient is most likely discharged today or tomorrow morning. Unless he develops any cardiac complaints overnight, he can have Echocardiogram as outpatient setting at Dr Jacobs's office. 2. Coronary artery disease with multiple stent placements in the past. The patient has been on Plavix, aspirin, carvedilol, losartan, lovastatin, Zetia, and Vascepa. The patient's last LDL in September 2019 was 55. 3. Hypertension. The patient's blood pressure has been stable at this moment with current medication. 4. Hyperlipidemia he is on lovastatin with very well controlled LDL. 5. Sleep apnea. He has his own CPAP machine in his room from home. 6. Left carotid bruit present. Recommend for further evaluation as outpatient. Thank you very much for Cardiology Service to participate in the care of this patient. We will follow along the patient's care team and make further recommendations as appropriate. However, the patient most likely to be discharged possibly today or tomorrow morning. Job ID: [id number] MTDD
--- NOTE | 2020-01-27 01:46 | CON ---
DATE OF CONSULTATION: 01/26/2020 INDICATION FOR CONSULTATION: A 54-year-old patient with atypical chest pain. HISTORY OF PRESENT ILLNESS: This very unfortunate 54-year-old gentleman has a history of known coronary artery disease, who has undergone angioplasty and stent placement to the right coronary and also has a left anterior descending artery starting back I believe in 2007. He did have other stents placed in 2013 and then again in 2019. He had been doing very well. He continues to work and does significant physical exertion and did not have any chest pain until he developed some sharp pain today on the right side of his chest. He was somewhat nervous and came to the emergency room. His enzymes are negative. EKG shows a right bundle branch block with evidence of old inferior myocardial infarction. This is unchanged from previous EKGs. His enzymes remain negative. He has had no further chest pain. At this time, he has no complaints. His hemoglobin was 13.6, platelet count was 189,000. His sodium is 138, creatinine was 0.79, blood sugar was 129. All cardiac enzymes were negative. Please refer to the remainder of the history and physical based on my nurse practitioner's note. We have seen and discussed this patient together and I would fully agree with her assessment and plan. From my perspective, the patient is stable and can be discharged to home. His last blood pressure was 129/74, temperature 98, heart rate 57, shows sinus rhythm, O2 saturation 98% on room air, respiratory rate was 16. His chest was clear to auscultation. Cardiovascular exam reveals a regular rate and rhythm. He did have some mild left lower leg edema, but he said this has been a chronic ongoing problem for at least a year now and I have suggested that he wear some support hose when he stands on his legs all day and continue to take diuretics. Otherwise, he appears to be stable from a cardiac standpoint and I believe this most likely was a noncardiac chest pain. He will follow up with Dr. Carroll in the next 2 to 4 weeks in the office unless he has further discomfort. I have suggested that if he has further chest pain with heaviness or pressure or indigestion type symptoms like what he had with his previous myocardial infarction involving the right coronary artery, that he return to the hospital in the emergency room. Otherwise, he can be discharged to home and we will see him back in the office as noted above. Job ID: [id number]
[2020-01-27 05:44] LABS: Elliptocytes SLIGHT = 2-5 cells (100X) (0-1/hpf); Hemoglobin 13.9 g/dL (14.0-18.0); Lymphocytes 7 % (21-51); MDiff Complete? YES; Mean Corpuscular HGB CONC 33.1 g/dL (32.0-36.0); Mean Corpuscular Hemoglobin 32.1 pg (27.0-31.0); Mean Platelet Volume 8.9 fL (7.4-10.4); Monocytes 5 % (0-10); Neutrophil 88 % (42-75); Platelet Count 180 thou/uL (130-400); Platelet Morphology Comment Appears Adequate; Red Blood Cell (RBC) Count 4.32 mill/uL (4.70-6.10); White Blood Cell (WBC) Count 12.2 thou/uL (4.8-10.8)
[2020-01-27 05:55] LABS: Anion Gap 12 mmol/L (10-20); BUN (Urea Nitrogen) 18 mg/dL (8.4-25.7); Calc. Creatinine Clearance 230 mL/min (70-130); Calcium 8.4 mg/dL (7.8-10.44); Carbon Dioxide 22 mmol/L (22-29); Cardiac Risk 2.7 (Less than 4.5); Chloride 107 mmol/L (98-107); Cholesterol 96 mg/dl (< 200 Desired); Estimated GFR-MDRD Greater than 90; Glucose 137 mg/dL (70-105); HDL Cholesterol 35 mg/dL (>60 Neg Risk); LDL Cholesterol, Calculated 43 mg/dL; Potassium 4.2 mmol/L (3.5-5.1); Sodium 137 mmol/L (136-145); Triglycerides 90 mg/dL (Less than 150)
[2020-01-27 07:59] VITALS: BP 132/71; TEMP 98.4
[2020-01-27] MEDS: Famotidine 20 MG TAB PO SCH (08:30)
[2020-01-27] MEDS: Carvedilol 6.25 MG TAB PO SCH (08:32)
[2020-01-27] MEDS ORDERED: Gabapentin 300 MG CAP PO SCH ×2 (09:00→12:00)
[2020-01-27] MEDS ORDERED: Aspirin 325 mg Enteric Coated Tablet PO SCH (09:00)
[2020-01-27] MEDS ORDERED: Losartan 25 MG TAB PO SCH (09:00)
[2020-01-27] MEDS ORDERED: Clopidogrel Bisulfate 75 MG TAB PO SCH (09:00)
[2020-01-27] MEDS ORDERED: traMADol HCl 50 MG TAB PO SCH (09:00)
[2020-01-27] MEDS ORDERED: Ezetimibe 10 MG TAB PO SCH (09:00)
--- NOTE | 2020-01-27 19:46 | DIS ---
DATE OF ADMISSION: 01/26/2020 DATE OF DISCHARGE: 01/27/2020 DISCHARGE DIAGNOSES: As of the followin. Chest pain. 2. Coronary artery disease status post 7 stents. 3. Obesity. 4. Hypertension. 5. Hyperlipidemia. 6. Sleep apnea. HOSPITAL COURSE: The patient is a very pleasant 54-year-old male, who initially presented to the hospital with complaints of right-sided chest pain. At this time, his troponins were checked. His troponin x3 were negative. He was seen by Cardiology who thought that his chest pain was most likely atypical in nature. The patient was then discharged home. He will get an echocardiogram as an outpatient per Cardiology's recommendations. HOME MEDICATIONS: Will be resumed: 1. Tramadol 1 p.o. b.i.d. 2. Amitriptyline 25 mg at bedtime. 3. Rosuvastatin 1 tab p.o. daily. 4. Losartan 100 mg daily. 5. Carvedilol 1 tab p.o. twice daily. 6. Clopidogrel 75 mg daily. 7. Pepcid 20 mg twice daily. 8. Aspirin 325 daily. PHYSICAL EXAMINATION: VITAL SIGNS: Temperature 98.4, 61, 60, 97% on room air, 117/65. GENERAL: He is awake, alert, and oriented x3. Does not appear in distress. CV: S1, S2. No murmurs, rubs, gallops. ABDOMEN: Soft, nontender. Bowel sounds are present x2. Again, he will be discharged home. Follow up with his primary. Job ID: [id number]
[2020-01-27] MEDS ORDERED: Rosuvastatin 20 MG TAB PO SCH (21:00)
== END 2020-01-27 11:30 | disposition home or self-care (01) ==
LOC: ERS 10:24 → 2SE 12:55
PROVIDERS: ADMIT Family Medicine; ATTEND Family Medicine
DX: R07.89 Other chest pain (principal); I25.10 Atherosclerotic heart disease of native coronary artery without angina pectoris; I10 Essential (primary) hypertension; I45.10 Unspecified right bundle-branch block; E66.01 Morbid (severe) obesity due to excess calories; E78.5 Hyperlipidemia, unspecified; G47.30 Sleep apnea, unspecified; G62.9 Polyneuropathy, unspecified; Z68.42 Body mass index [BMI] 45.0-49.9, adult; Z79.82 Long term (current) use of aspirin; Z79.899 Other long term (current) drug therapy; Z95.5 Presence of coronary angioplasty implant and graft
CPT/HCPCS: 36415; 71045; 80048; 80053; 80061; 83880; 84484; 85007; 85025; 85027; 93005; G0378

== ENCOUNTER 2021-07-10 16:15 | Outpatient (CLI) | payer BC | END 2021-07-10 16:16 | disposition home or self-care (01) | LOC: CT 16:15 | PROVIDERS: ATTEND Family Medicine | DX: R79.1 Abnormal coagulation profile (principal) | CPT/HCPCS: 71275 ==

== ENCOUNTER 2024-06-13 12:00 | Inpatient (IN) | payer BC ==
[2024-06-13 12:36] VITALS: BMI 38.6
[2024-06-20] MEDS ORDERED: Vancomycin 1 GM VIAL ONE (06:10)
[2024-06-20] MEDS ORDERED: EPINEPHrine 1 MG/ML VIAL ONE (06:10)
[2024-06-20] MEDS ORDERED: Thrombin 5000 UNITS/5 ML VIAL ONE (06:11)
[2024-06-20] MEDS ORDERED: Bupivacaine PF 0.5% 30 ML VIAL ONE (06:11)
[2024-06-20] MEDS ORDERED: CEFAZOLIN 2 GM VIAL ONE (06:23)
[2024-06-20] MEDS ORDERED: PROPOFOL 20 ML ONE (06:28)
[2024-06-20] MEDS ORDERED: Ketamine In 0.9 % NaCl 50 MG/5 ML SYRINGE ONE (06:28)
[2024-06-20] MEDS ORDERED: Fentanyl 250 MCG/5 ML VIAL ONE (06:28)
[2024-06-20] MEDS ORDERED: Rocuronium Bromide 10 MG/ML (10ML VIAL) ONE (06:30)
[2024-06-20] MEDS ORDERED: Lidocaine 1% PF 5 ML VIAL ONE (06:30)
[2024-06-20] MEDS ORDERED: diphenhydrAMINE 50 MG/ML VIAL IVP PRN (06:57)
[2024-06-20] MEDS ORDERED: Mag-Al 1200 mg/1200 mg/30 ML UDCUP PO PRN (06:57)
[2024-06-20] MEDS ORDERED: Milk Of Magnesia 30 ML UDCUP PO PRN (06:57)
[2024-06-20] MEDS ORDERED: Ondansetron PF 4 MG/2 ML Vial IVP PRN (06:57)
[2024-06-20] MEDS ORDERED: Dexamethasone 20 MG/5 ML VIAL ONE (08:31)
[2024-06-20] MEDS ORDERED: ePHEDrine Sulfate 50 MG/10 ML VIAL ONE (08:34)
[2024-06-20] MEDS ORDERED: Vecuronium 10 MG VIAL ONE ×2 (09:01→12:29)
[2024-06-20] MEDS ORDERED: CEFAZOLIN 1 GM VIAL ONE (10:46)
[2024-06-20] MEDS ORDERED: Sterile Water 20 ML ONE (10:46)
[2024-06-20] MEDS ORDERED: Dexmedetomidine 200 MCG/2 ML VIAL ONE (12:47)
[2024-06-20] MEDS ORDERED: Ondansetron PF 4 MG/2 ML Vial ONE (13:23)
[2024-06-20] MEDS ORDERED: Promethazine HCl 25 MG/ML VIAL IM PRN (13:26)
[2024-06-20] MEDS ORDERED: Morphine Sulfate 2 MG/ML SYRINGE SLOW IVP PRN (13:26)
[2024-06-20] MEDS ORDERED: Ondansetron HCl/PF 4 MG/2 ML Vial IVP PRN (13:26)
[2024-06-20] MEDS ORDERED: HYDROmorphone 2 MG/ML VIAL SLOW IVP PRN (13:26)
[2024-06-20] MEDS ORDERED: PACU-Morphine 4MG/ML VIAL SLOW IVP PRN (13:26)
[2024-06-20] MEDS ORDERED: SUGAMMADEX SODIUM 200 MG/2 ML VIAL ONE (14:04)
[2024-06-20] MEDS ORDERED: fentaNYL 50 mcg/mL 1 mL Vial ONE ×5 (14:21→16:12)
[2024-06-20] MEDS ORDERED: HYDROmorphone 0.5 MG/0.5 ML SYRINGE ONE ×2 (15:31→15:46)
[2024-06-20] MEDS: Sodium Chloride 0.9% 1,000 ML IV SCH (16:47)
[2024-06-20] MEDS: Carvedilol 6.25 MG TAB PO SCH (17:13)
[2024-06-20] MEDS: Furosemide 20 MG TAB PO SCH (17:14)
[2024-06-20] MEDS: Ezetimibe 10 MG TAB PO SCH (17:14)
[2024-06-20] MEDS: Gabapentin 300 MG CAP PO SCH (17:14)
[2024-06-20] MEDS: Pantoprazole DR 40 MG TAB PO SCH (17:15)
[2024-06-20] MEDS: Rosuvastatin 20 MG TAB PO SCH (17:15)
[2024-06-20] MEDS: CEFAZOLIN 2 GM in Sodium Chloride 0.9% 100 ML IVPB SCH ×2 (17:18→17:46)
[2024-06-20] MEDS: tiZANidine HCl 4 MG TAB PO PRN (17:45)
[2024-06-20] MEDS: Morphine 2 MG/ML VIAL SLOW IVP PRN (17:45)
[2024-06-20] MEDS: HYDROcodone/Acetaminophen 10/325 mg Tablet PO PRN (20:48)
[2024-06-20] MEDS: Amitriptyline HCl 25 MG TAB PO SCH (20:48)
[2024-06-21] MEDS: Tamsulosin HCl 0.4 MG CAP PO SCH (04:51)
[2024-06-21] MEDS: Sodium Chloride 0.9% 1,000 ML IV SCH (12:12)
[2024-06-21 12:15] VITALS: BMI 38.6
[2024-06-22] MEDS: Acetaminophen/Codeine 30-300mg Tablet PO PRN (01:57)
[2024-06-22 04:49] LABS: #Basophils 0.03 10x3/uL (0.0-0.2); #Eosinophils Less than 0.03 10x3/uL (0.0-0.7); %Basophils 0.3 % (0.0-1.0); %Eosinophils 0.2 % (0.0-10.0); %Lymphocytes 8.8 % (21.0-51.0); %Monocytes 9.7 % (0.0-10.0); %Neutrophils 80.5 % (42.0-75.0); Hematocrit 33.2 % (42.0-52.0); Hemoglobin 11.3 g/dL (14.0-18.0); Mean Corpuscular Hemoglobin 32.4 pg (27.0-31.0); Mean Corpuscular Volume 95.1 fL (78.0-98.0); Mean Platelet Volume 10.6 fL (7.4-10.4); Platelet Count 153 10x3/uL (130-400); RBC Distribution Width 12.6 % (11.5-14.5); Red Blood Cell (RBC) Count 3.49 mill/uL (4.70-6.10)
[2024-06-22 05:14] LABS: Anion Gap 10 mmol/L (10-20); BUN (Urea Nitrogen) 16 mg/dL (8.4-25.7); Calc. Creatinine Clearance 191 mL/min (70-130); Calcium 7.9 mg/dL (7.8-10.44); Carbon Dioxide 25 mmol/L (22-29); Chloride 109 mmol/L (98-107); Estimated GFR 104; Glucose 108 mg/dL (70-105); Potassium 3.9 mmol/L (3.5-5.1); Sodium 140 mmol/L (136-145)
[2024-06-22] MEDS: HYDROcodone/Acetaminophen 7.5/325 mg Tablet PO PRN (09:27)
[2024-06-22 15:54] LABS: Bacteria/HPF None Seen HPF (None Seen); Bilirubin Negative (Negative); Blood, Urine Negative (Negative); CAUTI Indications for Culture Dysuria,urgency,freq; Clarity Clear (Clear); Glucose, Urine (Dipstick) Normal (Negative); Ketone, Urine Negative (Negative); Leukocyte Negative Leu/uL (Negative); Nitrite Negative (Negative); Protein, Urine (Dipstick) Negative (Neg-Trace); RBC/HPF None Seen HPF (0-3); Specific Gravity, Urine 1.008 (1.002-1.036); Squamous Epithelial None Seen HPF (0-3); Urobilinogen 3 mg/dL (Less than 2); WBC/HPF 0-3 HPF (0-3); pH, Urine 7.5 (5.0-9.0)
[2024-06-22 15:57] LABS: Urine Culture Reflex No No
[2024-06-22 19:25] VITALS: BP 139/72; TEMP 97.7
[2024-06-23] MEDS ORDERED: FLU (Fluarix Triv) TS24-25(6MOS UP)/PF 45 MCG/0.5 ML Syringe IM ONE (17:00)
== END 2024-06-22 20:45 | disposition home or self-care (01) | DRG 428 ==
LOC: SURG A 06-20 05:47 → EDSTATUS 06-20 12:00 → T4-A 06-20 16:27
PROVIDERS: ADMIT Neurological Surgery; ATTEND Neurological Surgery
PROC: 0SB20ZZ Excision of Lumbar Vertebral Disc, Open Approach (ICD-10-PCS; principal; 2024-06-20)
PROC: 0SG00AJ Fusion of Lumbar Vertebral Joint with Interbody Fusion Device, Posterior Approach, Anterior Column, Open Approach (ICD-10-PCS; 2024-06-20)
PROC: 0SG30AJ Fusion of Lumbosacral Joint with Interbody Fusion Device, Posterior Approach, Anterior Column, Open Approach (ICD-10-PCS; 2024-06-20)
PROC: 0SG0071 Fusion of Lumbar Vertebral Joint with Autologous Tissue Substitute, Posterior Approach, Posterior Column, Open Approach (ICD-10-PCS; 2024-06-20)
PROC: 0SG3071 Fusion of Lumbosacral Joint with Autologous Tissue Substitute, Posterior Approach, Posterior Column, Open Approach (ICD-10-PCS; 2024-06-20)
PROC: 0SB40ZZ Excision of Lumbosacral Disc, Open Approach (ICD-10-PCS; 2024-06-20)
PROC: 01NB0ZZ Release Lumbar Nerve, Open Approach (ICD-10-PCS; 2024-06-20)
PROC: 3E033XZ Introduction of Vasopressor into Peripheral Vein, Percutaneous Approach (ICD-10-PCS; 2024-06-20)
PROC: 5A09357 Assistance with Respiratory Ventilation, Less than 24 Consecutive Hours, Continuous Positive Airway Pressure (ICD-10-PCS; 2024-06-20)
DX: M48.07 Spinal stenosis, lumbosacral region (principal); M48.062 Spinal stenosis, lumbar region with neurogenic claudication; M54.16 Radiculopathy, lumbar region; M43.16 Spondylolisthesis, lumbar region; Z98.890 Other specified postprocedural states; Z96.652 Presence of left artificial knee joint; I25.10 Atherosclerotic heart disease of native coronary artery without angina pectoris; I10 Essential (primary) hypertension; I25.2 Old myocardial infarction; E66.9 Obesity, unspecified; Z68.38 Body mass index [BMI] 38.0-38.9, adult; Z79.82 Long term (current) use of aspirin; Z79.899 Other long term (current) drug therapy; E78.5 Hyperlipidemia, unspecified; K21.9 Gastro-esophageal reflux disease without esophagitis; G47.33 Obstructive sleep apnea (adult) (pediatric); R33.8 Other retention of urine
CPT/HCPCS: 36415; 80048; 81001; 85025; 97139; A4314; A6258; C1713; C1889; J0171; J0665; J0690; J1100; J1170; J2272; J2405; J2704; J3010; J3370; J3490; J7030

== ENCOUNTER 2024-06-13 12:05 | Outpatient (CLI) | payer BC ==
[2024-06-13 13:57] LABS: #Basophils 0.04 10x3/uL (0.0-0.2); %Basophils 0.6 % (0.0-1.0); %Eosinophils 2.3 % (0.0-10.0); %Monocytes 8.4 % (0.0-10.0); %Neutrophils 73.4 % (42.0-75.0); Hematocrit 45.1 % (42.0-52.0); Hemoglobin 15.8 g/dL (14.0-18.0); Mean Corpuscular Hemoglobin 32.2 pg (27.0-31.0); Mean Corpuscular Volume 91.9 fL (78.0-98.0); Mean Platelet Volume 10.6 fL (7.4-10.4); Platelet Count 207 10x3/uL (130-400); RBC Distribution Width 11.9 % (11.5-14.5); Red Blood Cell (RBC) Count 4.91 mill/uL (4.70-6.10)
[2024-06-13 14:11] LABS: Anion Gap 11 mmol/L (10-20); BUN (Urea Nitrogen) 9 mg/dL (8.4-25.7); Calc. Creatinine Clearance 0 mL/min (70-130); Calcium 9.1 mg/dL (7.8-10.44); Carbon Dioxide 24 mmol/L (22-29); Chloride 107 mmol/L (98-107); Estimated GFR 106; Glucose 85 mg/dL (70-105); Potassium 4.3 mmol/L (3.5-5.1); Prothrombin Time 13.1 sec (12.0-14.7); Sodium 138 mmol/L (136-145)
[2024-06-13 14:12] LABS: PTT 29.9 sec (22.9-36.1)
== END 2024-06-13 12:06 | disposition home or self-care (01) ==
LOC: LABBT 12:05
PROVIDERS: ATTEND Neurological Surgery
DX: Z01.818 Encounter for other preprocedural examination (principal); M48.062 Spinal stenosis, lumbar region with neurogenic claudication; M48.07 Spinal stenosis, lumbosacral region; M43.16 Spondylolisthesis, lumbar region
CPT/HCPCS: 80048; 85025; 85610; 85730; 93005; 93010